=== PATIENT | female | born 1995 | race Caucasian/White ===

== ENCOUNTER 2018-04-27 08:09 | Emergency (ER) | payer SELFPAY ==
[2018-04-27] MEDS ORDERED: CLINDAMYCIN 150 MG CAP PO ONE (08:35)
--- NOTE | 2018-04-27 08:39 | Emergency Department Record ---
History of Present Illness - General Chief complaint: Abscess Stated complaint: CYST UNDER ARM Time Seen by Provider: 04/27/18 08:30 Source: Patient Mode of Arrival: Ambulatory Limitations: No limitations - History of Present Illness Initial comments: The patient is here due to a painful rash under the L arm for the last 2 days. She also has had one on the R leg but that is improved. The patient did try to pop the L axilla area last evening and did get a small amount of purulence out. She denies any hx of similar issues or problems and also denies any fever, chills, or vomiting. MD complaint: Abscess/boil, Rash Onset/Timin -: Days(s) Location: LUE Severity: Moderate Severity scale (1-10): 7 Quality: Other Consistency: Constant Improves with: None Worsens with: Palpation Context: None Associated symptoms: Denies other symptoms Treatments Prior to Arrival: None - Related Data Home Medications Medication Instructions Recorded Confirmed Last Taken Levonorgestrel [Mirena] 1 each IU ASDIR 04/27/18 04/27/18 04/27/18 Previous Rx's Medication Instructions Recorded Clindamycin HCl [Cleocin HCl] 300 mg PO QID #28 capsule 04/27/18 Naproxen [Naprosyn] 500 mg PO BID #14 tablet. 04/27/18 Allergies Allergy/AdvReac Type Severity Reaction Status Date / Time No Known Drug Allergies Allergy Verified 04/27/18 08:21 Travel Screening - Travel/Exposure Within Last 30 Days Have you traveled within the last 30 days?: No - Travel/Exposure Within Last Year Have you traveled outside the [place] in the last year?: No - Additonal Travel Details Have you been exposed to anyone with a communicable illness?: No - Travel Symptoms Symptom Screening: None Review of Systems Constitutional: Denies: Chills, Fever Eyes: Denies: Eye discharge ENT: Denies: Congestion Respiratory: Denies: Cough, Dyspnea Past Medical History - SOCIAL HISTORY Smoking Status: Current every day smoker Alcohol Use: Occasional Drug Use: None - RESPIRATORY Hx Respiratory Disorders: No - CARDIOVASCULAR Hx Cardio Disorders: No - NEURO Hx Neuro Disorders: No - GI Hx GI Disorders: No - Hx Genitourinary Disorders: No - ENDOCRINE Hx Endocrine Disorders: No - PSYCH Hx Psych Problems: No - HEMATOLOGY/ONCOLOGY Hx Hematology/Oncology Disorders: No Family Medical History Any Significant Family History?: Yes Hx Diabetes: Mother, Grandparents Physical Exam - General General Appearance: Alert, Oriented x3, Cooperative, No acute distress - Head Head exam: Atraumatic, Normocephalic, Normal inspection - Eye Eye exam: Normal appearance, PERRL, EOMI - Neck Neck exam: Normal inspection, Full ROM. negative: Tenderness - Respiratory Respiratory exam: Normal lung sounds bilaterally. negative: Respiratory distress - Cardiovascular Cardiovascular Exam: Regular rate, Normal rhythm, Normal heart sounds - Extremities Extremities exam: Normal inspection, Full ROM, Normal capillary refill. negative: Tenderness - Skin Skin exam: Other (There is a 2 x 3 cm area of erythema near the L axilla. It is quite tender and warm. There is NO fluctuance present. ) Course Vital Signs 04/27/18 08:23 Temperature 98.4 F Pulse Rate 94 H Respiratory 16 Rate Blood Pressure 134/85 Pulse Ox 100 - Reevaluation(s) Reevaluation #1: I did explain to the patient that the infected area near the L axilla is not ready for I and D at this time. The patient is to take the Abx's and pain meds and use warm compresses to the affected area. She is to return to the ER in 1-2 days if the infection comes to the surface and the area becomes fluctuant. 04/27/18 08:49 Disposition Disposition: Discharge Clinical Impression: Skin infection Disposition: Home, Self-Care Condition: (2) Stable Instructions: Cellulitis (ED) Additional Instructions: Please use a warm compress on the L armpit area every hour for 20 minutes. Take the Clindamycin and Naprosyn as directed. Please return to the ER in 2 days for recheck or sooner for any worsening symptoms of pain, swelling, or any fever. Prescriptions: Clindamycin HCl [Cleocin HCl] 300 mg PO QID #28 capsule Naproxen [Naprosyn] 500 mg PO BID #14 tablet.dr Forms: Patient Portal Access Time of Disposition: 08:52 Quality - Quality Measures Quality Measures: N/A - Blood Pressure Screening View Details: Yes Does Patient Have Any of the Following: No Blood Pressure Classification: Pre-Hypertensive BP Reading Systolic Measurement: 134 Diastolic Measurement: 85 Screening for High Blood Pressure: < Pre-Hypertensive BP, F/U Documented > [ [id number]] Pre-Hypertensive Follow-up Interventions: Referral to alternative/primary care provider.
== END 2018-04-27 09:00 | disposition home or self-care (01) ==
LOC: ER 08:09
DX: L02.412 Cutaneous abscess of left axilla (principal); F17.210 Nicotine dependence, cigarettes, uncomplicated
CPT/HCPCS: 99282